=== PATIENT | male | born 1990 | race American Indian/Alaskan Native ===

== ENCOUNTER 2023-07-12 12:32 | Emergency (ER) | payer BC, MEDICAID ==
[~2023-07-12] VITALS: Ht 177.8 cm; Wt 77.4 kg
[~2023-07-12 12:32] MED LIST: OMEP20CA15 PO
[2023-07-12 13:01] LABS: BASOPHILS % (AUTO) 0.3 % (0-1); EOSINOPHILS # (AUTO) 0.2 X10'3 (0-0.9); EOSINOPHILS % (AUTO) 3.4 % (0-6); HEMATOCRIT 46.6 % (42.0-52.0); HEMOGLOBIN 15.9 g/dl (14.0-17.9); LYMPHOCYTES # (AUTO) 2.3 X10'3 (1.1-4.8); LYMPHOCYTES % (AUTO) 35.4 % (21-51); MEAN CORPUSCULAR HEMOGLOBIN 28.9 PG (27.0-31.0); MEAN CORPUSCULAR HGB CONC 34.1 g/dL (33.0-36.5); MEAN PLATELET VOLUME 10.1 FL (7.4-10.4); MONOCYTES # (AUTO) 0.5 X10'3 (0-0.9); MONOCYTES % (AUTO) 7.4 % (2-12); NEUTROPHILS # (AUTO) 3.4 X10'3 (1.8-7.7); NEUTROPHILS % (AUTO) 53.5 % (42-75); PLATELET COUNT 169 X10'3 (140-440); RED BLOOD COUNT 5.48 X10'6 (4.70-6.10); RED CELL DISTRIBUTION WIDTH 13.3 % (11.5-14.5); WHITE BLOOD COUNT 6.4 X10'3 (4.5-11.0)
[2023-07-12 13:16] LABS: ALBUMIN 4.1 G/DL (3.4-5.0); ANION GAP 6 (8-16); BLOOD UREA NITROGEN 14 MG/DL (7-18); BUN/CREATININE RATIO 13.6 (10.0-20.0); CALCIUM 9.4 MG/DL (8.5-10.1); CHLORIDE 104 MMOL/L (99-107); CREATININE 1.03 MG/DL (0.60-1.10); GLUCOSE 120 MG/DL (70-104); POTASSIUM 3.7 MMOL/L (3.5-5.1); PRO BRAIN NATRIURETIC PEPTIDE 31 PG/ML (0-125); SODIUM 138 MMOL/L (135-145); TOTAL CARBON DIOXIDE 27.7 MMOL/L (24-32); eCRCL 107 ML/MIN; eGFR 84 ML/MIN
[2023-07-12] MEDS ORDERED: PANT20TA18 PO (13:54)
[2023-07-12 15:00] LABS: D-DIMER 1.21 MG/L FEU (0-0.50)
[2023-07-12] MEDS: acetaminophen 1,000mg/100ml IV 100 ML IV STA (23:39)
[2023-07-12] MEDS ORDERED: iohexol 350MG/ML 100ml bottle IV ONE (23:42)
[2023-07-13 02:52] VITALS: BP 111/75; PULSE 77; RESP 14; TEMP 98; O2SAT 99
== END 2023-07-13 02:53 | disposition home or self-care (01) ==
LOC: ER 12:32
DX: R07.89 Other chest pain (principal); J45.909 Unspecified asthma, uncomplicated; K21.9 Gastro-esophageal reflux disease without esophagitis; Z88.1 Allergy status to other antibiotic agents; Z88.5 Allergy status to narcotic agent; Z88.6 Allergy status to analgesic agent; Z79.899 Other long term (current) drug therapy
CPT/HCPCS: 36415; 71045; 71275; 80048; 83880; 84484; 85025; 85379; 93005; 93306; 96374; 99285; J0131; Q9967

== ENCOUNTER 2024-01-17 14:31 | Emergency (ER) | payer MEDICAID ==
[~2024-01-17] VITALS: Ht 177.8 cm; Wt 75.7 kg
[~2024-01-17 14:31] MED LIST changes: +PANT20TA18 PO
[2024-01-17 14:34] VITALS: BP 125/81; PULSE 96; TEMP 98.2; O2SAT 98
[2024-01-17] MEDS ORDERED: IBUP-1984 PO (14:53)
[2024-01-17] MEDS ORDERED: DIPH-518 PO (14:53)
[2024-01-17] MEDS ORDERED: MAG355OR18 PO (14:53)
[2024-01-17 15:11] VITALS: RESP 18
[2024-01-17 15:28] LABS: STREP A SCREEN NEGATIVE (Neg)
== END 2024-01-17 15:13 | disposition home or self-care (01) ==
LOC: ER 14:32
DX: J39.2 Other diseases of pharynx (principal); R13.10 Dysphagia, unspecified; J45.909 Unspecified asthma, uncomplicated; K21.9 Gastro-esophageal reflux disease without esophagitis; Z88.6 Allergy status to analgesic agent; Z88.5 Allergy status to narcotic agent; Z88.1 Allergy status to other antibiotic agents; Z88.0 Allergy status to penicillin; Z87.11 Personal history of peptic ulcer disease
CPT/HCPCS: 87081; 87880; 99283

== ENCOUNTER 2024-05-30 11:38 | Emergency (ER) | payer MEDICAID ==
[~2024-05-30] VITALS: Ht 177.8 cm; Wt 53.9 kg
[~2024-05-30 11:38] MED LIST changes: +DIPH-518 PO
[2024-05-30 16:05] LABS: BASOPHILS % (AUTO) 0.3 % (0-1); EOSINOPHILS # (AUTO) 0.1 X10'3 (0-0.9); EOSINOPHILS % (AUTO) 1.8 % (0-6); HEMATOCRIT 46.9 % (42.0-52.0); HEMOGLOBIN 15.6 g/dl (14.0-17.9); LYMPHOCYTES # (AUTO) 1.4 X10'3 (1.1-4.8); LYMPHOCYTES % (AUTO) 23.3 % (21-51); MEAN CORPUSCULAR HEMOGLOBIN 28.5 PG (27.0-31.0); MEAN CORPUSCULAR HGB CONC 33.4 g/dL (33.0-36.5); MEAN CORPUSCULAR VOLUME 85.3 FL (78-98); MEAN PLATELET VOLUME 9.9 FL (7.4-10.4); MONOCYTES # (AUTO) 0.4 X10'3 (0-0.9); MONOCYTES % (AUTO) 5.9 % (2-12); NEUTROPHILS # (AUTO) 4.1 X10'3 (1.8-7.7); NEUTROPHILS % (AUTO) 68.7 % (42-75); PLATELET COUNT 156 X10'3 (140-440); RED CELL DISTRIBUTION WIDTH 14.1 % (11.5-14.5)
[2024-05-30 16:40] LABS: ALANINE AMINOTRANSFERASE 23 U/L (12-78); ALBUMIN 4.4 G/DL (3.4-5.0); ALKALINE PHOSPHATASE 93 IU/L (46-116); ANION GAP 10 (8-16); ASPARTATE AMINO TRANSFERASE 12 U/L (10-37); BILIRUBIN,TOTAL 0.9 MG/DL (0.1-1.0); BLOOD UREA NITROGEN 13 MG/DL (7-18); CALCIUM 9.4 MG/DL (8.5-10.1); CHLORIDE 105 MMOL/L (99-107); CREATININE 0.81 MG/DL (0.60-1.10); GLUCOSE 79 MG/DL (70-104); POTASSIUM 4.1 MMOL/L (3.5-5.1); PRO BRAIN NATRIURETIC PEPTIDE < 30 PG/ML (0-125); SODIUM 141 MMOL/L (135-145); TOTAL PROTEIN 8.8 G/DL (6.4-8.2); eCRCL 100 ML/MIN; eGFR > 90 ML/MIN
[2024-05-30 17:29] VITALS: BP 112/72; PULSE 72; RESP 16; TEMP 98.1; O2SAT 100
== END 2024-05-30 17:31 | disposition home or self-care (01) ==
LOC: ER 11:38
DX: R07.89 Other chest pain (principal); R06.02 Shortness of breath; J45.909 Unspecified asthma, uncomplicated; K21.9 Gastro-esophageal reflux disease without esophagitis; Z88.1 Allergy status to other antibiotic agents; Z88.5 Allergy status to narcotic agent; Z79.899 Other long term (current) drug therapy; Z20.822 Contact with and (suspected) exposure to COVID-19
CPT/HCPCS: 36415; 71045; 80053; 83880; 84484; 85025; 87811; 93005; 99285

== ENCOUNTER 2024-06-01 15:21 | Emergency (ER) | payer MEDICAID ==
[~2024-06-01] VITALS: Ht 177.8 cm; Wt 54.3 kg
[2024-06-01 15:33] VITALS: BP 128/85; PULSE 94; O2SAT 100
[2024-06-01 17:45] VITALS: RESP 17; TEMP 98.3
== END 2024-06-01 17:43 | disposition home or self-care (01) ==
LOC: ER 15:22
DX: F41.9 Anxiety disorder, unspecified (principal); T78.8XXA Other adverse effects, not elsewhere classified, initial encounter; K21.9 Gastro-esophageal reflux disease without esophagitis; J45.909 Unspecified asthma, uncomplicated; Z88.0 Allergy status to penicillin; Z88.1 Allergy status to other antibiotic agents; X58.XXXA Exposure to other specified factors, initial encounter
CPT/HCPCS: 99281